=== PATIENT | male | born 1990 | race Caucasian/White ===

== ENCOUNTER 2016-03-29 11:06 | Emergency (ER) | payer BC, OTHER ==
[~2016-03-29] VITALS: Ht 180.3 cm; Wt 71.0 kg
[2016-03-29 11:14] VITALS: TEMP 36.8; Ht 180.3 cm; Wt 71.0 kg
[2016-03-29] MEDS ORDERED: HYDR1CAP85 PO (12:09)
[2016-03-29 12:23] VITALS: BP 126/84; PULSE 86; O2SAT 99
--- NOTE | 2016-03-29 20:31 | EMERGENCY ROOM VISIT NOTE ---
History First contact with patient: 11:57 Chief Complaint: RASH Stated Complaint: ITCHY RASH History of Present Illness The patient is a 25 year old male who presents to the Emergency Room with complaints of a rash on his back for the past 4 months. The patient reports that he has been seen at urgent care, by his PCP and maintenance shop technician without resolution of symptoms. His maintenance shop technician initially 5 that it may have been scabies. He was treated with a topical cream 2. When his symptoms persisted, he was then given IM Decadron and provided a steroid cream. He was last evaluated by his maintenance shop technician 2 weeks ago, and does not have an upcoming appointment. The patient denies rash anywhere else on his body. He reports that Benadryl is not really helping with the edge. He denies any fevers or chills, backache, joint aches, headaches or fevers. He denies using any new lotions, detergents or soaps. He denies any pain. Review of Systems 10 system review was performed and was negative except for pertinent positives and negatives as indicated in history of present illness Past Medical/Surgical History Medical Problems: (1) Tobacco Use Disorder Surgical Problems: (1) No history of previous surgery Family History FH: diabetes mellitus FH: hypertension FH: seizures Social History Smoking Status: Never Smoker Smokeless Tobacco Use: Yes Alcohol Use: occasionally Marital Status: single Housing Status: lives with family, lives with significant other Occupation Status: employed Current/Historical Medications Scheduled PRN Hydroxyzine Pamoate (Vistaril), 25-50 MG PO Q6H PRN for Itching Allergies Coded Allergies: Amoxicillin (Verified Allergy, Mild, other, 03/29/16) Physical Exam Vital Signs Date Time Temp Pulse Resp B/P Pulse Ox O2 Delivery O2 Flow Rate FiO2 03/29/16 12:23 86 20 126/84 99 03/29/16 11:14 36.8 68 18 146/97 96 Room Air Physical Exam CONSTITUTIONAL: Healthy and well nourished. Alert and oriented X 3 with positive affect. HEENT: Normocephalic, atraumatic. Pupils equal, round and reactive. NECK: Full active range of motion without discomfort. OROPHARYNX: No tonsillar hypertrophy or exudates. RESPIRATORY: Clear to auscultation bilaterally with no wheezing, crackles, rhonchi or stridor. CARDIOVASCULAR: Regular rate and rhythm with no murmurs, rubs or gallops. GASTROINTESTINAL: Bowel sounds present in all quadrants. No obvious hepatosplenomegaly. MUSCULOSKELETAL: Full range of motion of all joints without discomfort. INTEGUMENTARY: Examination of the back shows a papular rash without evidence for recent pustules, vesicles, umbilication or ulceration. There are several areas of excoriation without evidence for secondary infection. Patient has no other involvement on the anterior torso or extremities. NEUROLOGIC: No focal neurologic deficits noted. Medical Decision & Procedures ED Course Patient history and physical exam were performed. Nurse's notes were reviewed. At this point, I feel that the patient needs a repeat dermatology reevaluation. The patient refused any lab work today. He was provided a prescription for hydroxyzine. If he is unable to contact his maintenance shop technician in [place], he was provided contact information for Dr. Julien, local maintenance shop technician. The patient was instructed to return to the emergency department for any significant spread elsewhere on the body, developing fever, joint aches, abdominal pain or other concerning symptoms. The patient voiced understanding of all discharge instructions, and was happy with plan of care. Medical Decision Impression Primary Impression: Rash Departure Information Dispostion Home / Self-Care Prescriptions Hydroxyzine Pamoate (VISTARIL) 25 Mg Cap 25-50 MG PO Q6H Y for Itching, #60 CAP Prov: Bigg Sim PA 03/29/16 Referrals Ruddy Julien M.D. Forms HOME CARE DOCUMENTATION FORM, IMPORTANT VISIT INFORMATION Patient Instructions A Signature Page, EpicTopic Additional Instructions Continue with your current antihistamines and Benadryl for itch. Take hydroxyzine as prescribed for additional itch relief. Do not drink or drive while taking hydroxyzine or Benadryl. Follow-up with your maintenance shop technician, or contact Dr. Julien locally to see if he can see you sooner. Tell the office that you were referred from the emergency department.
== END 2016-03-29 12:24 | disposition home or self-care (01) ==
LOC: C.EDB 11:08 → C.EDD 12:24
DX: R21 Rash and other nonspecific skin eruption (principal); F17.200 Nicotine dependence, unspecified, uncomplicated

== ENCOUNTER → 2016-09-22 | Outpatient (CLI) | payer OTHER ==
[2016-09-22 14:11] LABS: SYNOVIAL FLUID APPEARANCE CLOUDY; SYNOVIAL FLUID COLOR AMBER
[2016-09-22 14:17] LABS: SYNOVIAL FLUID MONONUC RELAT 12.4 %; SYNOVIAL FLUID POLYNUC RELAT 87.6 %
[2016-09-22 17:59] LABS: LYME DISEASE AB IGG POS (NEG); LYME DISEASE AB IGM EQUIVOCAL (NEG)
[2016-09-25 02:29] LABS: LYME DNA PCR CSF OR SYNOVIAL Detected (Not Detected); LYME DNA SOURCE Synovial Fluid
[2016-09-27 01:36] LABS: 18KDIGG BAND REACTIVE (NONREACTIVE); 23KDIGG BAND REACTIVE (NONREACTIVE); 23KDIGM BAND REACTIVE (NONREACTIVE); 28KDIGG BAND REACTIVE (NONREACTIVE); 30KDIGG BAND REACTIVE (NONREACTIVE); 39KDIGG BAND REACTIVE (NONREACTIVE); 39KDIGM BAND REACTIVE (NONREACTIVE); 41KDIGG BAND REACTIVE (NONREACTIVE); 41KDIGM BAND REACTIVE (NONREACTIVE); 45KDIGG BAND REACTIVE (NONREACTIVE); 58KDIGG BAND REACTIVE (NONREACTIVE); 66KDIGG BAND REACTIVE (NONREACTIVE); 93KDIGG BAND REACTIVE (NONREACTIVE)
== END | disposition home or self-care (01) ==
LOC: C.LABBC 12:23
PROVIDERS: ATTEND Orthopaedic Surgery
DX: M25.561 Pain in right knee (principal)